=== PATIENT | male | born 1995 | race Caucasian/White ===

== ENCOUNTER 2017-03-27 17:50 | Emergency (ER) | payer BC ==
[2017-03-27 17:59] VITALS: O2SAT 97
--- NOTE | 2017-03-27 19:50 | EDPHY ---
H & P Time Seen by Provider: 03/27/17 19:20 HPI/ROS: CHIEF COMPLAINT: Head injury HISTORY OF PRESENT ILLNESS: Patient is a 21-year-old male presents emergency department after falling while snowboarding. The patient was helmeted. He struck the back of his head [place]. He denies losing consciousness but did have slight dizziness. Throughout the day he has felt fatigued. He also has felt mildly dizzy. He states that he felt "shaky. "He has no focal weakness or numbness. No neck pain. No nausea or vomiting. REVIEW OF SYSTEMS: My complete review of systems is negative except as mentioned in the HPI. Past Medical/Surgical History: Previous concussion Past surgical history: Negative Social history: The patient smokes. Smoking Status: Light smoker Physical Exam: GENERAL: Well-appearing, in no acute distress, alert. HEAD: No evidence of trauma. EYES: PERRLA, EOMI, normal to inspection. ENT: Airway intact, no dental or oral injury, no malocclusion, no hemotympanum , normal external examination. NECK: The trachea is midline. There is no crepitus. The C-spine is nontender. NEXUS criteria is negative (no midline tenderness, no distracting injury, no altered mental status, no recent alcohol use, no focal neurologic deficit). RESPIRATORY: Clear to auscultation bilaterally, no rales, rhonchi or wheezing. There is no crepitus or palpable rib fractures. CVS: Regular rate and rhythm, no rubs, murmurs, or gallops. ABDOMEN: Soft, nontender, nondistended, normal bowel sounds, no bruising or abrasions. Pelvis: Stable. No tenderness palpation. Hips full range of motion. BACK: Normal to inspection, no spinal tenderness, no spinal step off, no notable bruising or abrasions. SKIN: Normal color, warm, dry. No pallor or diaphoresis. EXTREMITIES: Right upper extremity: Atraumatic. No visible signs of trauma. No tenderness palpation. Neurovascular intact distally. Left upper extremity: Atraumatic. No visible signs of trauma. No tenderness palpation. Neurovascular intact distally. Right lower extremity: Atraumatic. No visible signs of trauma. No tenderness palpation. Neurovascular intact distally. Left lower extremity: Atraumatic. No visible signs of trauma. No tenderness palpation. Neurovascular intact distally. NEURO/PSYCH: Alert and oriented x 3, GCS 15, normal mood and affect, normal motor sensory exam. Constitutional: Initial Vital Signs Temperature (C) 37.1 C 03/27/17 17:55 Heart Rate 84 03/27/17 17:55 Respiratory Rate 14 03/27/17 17:55 Blood Pressure 125/77 H 03/27/17 17:55 O2 Sat (%) 97 03/27/17 17:55 O2 Delivery Mode Room Air Allergies/Adverse Reactions: No Known Allergies Allergy (Unverified 03/27/17 17:55) Home Medications: Medication Instructions Recorded NK [No Known Home Meds] 03/27/17 Medical Decision Making ED Course/Re-evaluation: In the emergency department I discussed possible etiologies with the patient. I answered all his questions. Head CT was ordered. Head CT: Please refer the dictated report. No acute disease noted. I discussed the results with the patient. I answered all his questions. He was given warnings prior to leaving. He will return with worsening symptoms. Differential Diagnosis: My differential includes but is not limited to concussion, contusion, subarachnoid hemorrhage, subdural hematoma, epidural hematoma Departure - Departure Disposition: [facility] Clinical Impression: Head injury Qualifiers: Encounter type: initial encounter Qualified Code(s): S09.90XA - Unspecified injury of head, initial encounter Condition: Good Instructions: Head Injury (ED) Additional Instructions: Return with increasing headache, nausea, vomiting or any other concerns. Referrals: WILIAM Stewart,. [Clinic] - As per Instructions
[2017-03-27 20:12] VITALS: BP 142/65; PULSE 75; RESP 18; TEMP 98.1
== END 2017-03-27 20:14 | disposition home or self-care (01) ==
DX: S09.93XA Unspecified injury of face, initial encounter (principal); F17.200 Nicotine dependence, unspecified, uncomplicated; V00.311A Fall from snowboard, initial encounter; Y99.8 Other external cause status; Y93.23 Activity, snow (alpine) (downhill) skiing, snowboarding, sledding, tobogganing and snow tubing

== ENCOUNTER → 2018-05-22 | Outpatient (CLI) | payer BC, OTHER | LOC: BMCIMAGING 18:17 | PROVIDERS: ATTEND Family Medicine | DX: S82.391A Other fracture of lower end of right tibia, initial encounter for closed fracture (principal) ==

== ENCOUNTER → 2018-05-22 | Outpatient (CLI) | payer BC, OTHER | LOC: BMCIMAGING 19:14 | PROVIDERS: ATTEND Family Medicine | DX: S69.92XA Unspecified injury of left wrist, hand and finger(s), initial encounter (principal); S49.91XA Unspecified injury of right shoulder and upper arm, initial encounter ==

== ENCOUNTER → 2018-05-27 | Outpatient (CLI) | payer OTHER | LOC: FIMAGING 14:13 | PROVIDERS: ATTEND Orthopaedic Surgery Sports Medicine | DX: S82.391D Other fracture of lower end of right tibia, subsequent encounter for closed fracture with routine healing (principal) ==